=== PATIENT | male | born 1960 | race Caucasian/White ===

== ENCOUNTER 2024-09-28 06:28 | Emergency (ER) | payer BC, SELFPAY ==
--- NOTE | ~2024-09-28 | CT_ITS ---
EXAMINATION: CT brain wo con DATE: 09/28/2024 08:18 INDICATION: Acute mental status TECHNIQUE: Computed tomography (CT) of the head was performed without intravenous contrast. Sagittal and coronal reconstructions were performed. The mA was adjusted according to patient size. Iterative reconstruction technique was employed. The dose-length product was 681.00 mGy-cm. COMPARISON: None FINDINGS: No acute intracranial hemorrhage, acute infarction or abnormal extra axial fluid collection. There is mild scattered white matter hypoattenuation consistent with chronic small vessel ischemic disease. V entricles are normal and symmetric. No mass/mass effect. Changes of bilateral intraocular lens replac ement. The orbits, paranasal sinuses and mastoid air cells are normal. IMPRESSION: 1. Normal aging brain. No acute intracranial process. Reviewed, dictated and finalized at location [facility]. P THERAPY COUNSELOR
[2024-09-28 06:30] VITALS: BP 120/92; PULSE 128; RESP 15; TEMP 36.7; O2SAT 94
[2024-09-28 06:46] VITALS: PULSE 125; RESP 15; O2SAT 100
--- NOTE | 2024-09-28 06:46 | ECG_ITS ---
Test Date: 2024-09-28 06:51:14 Measurements Intervals [place] Rate: 123 P: 167 WA: 220 QRS: 129 QRSD: 141 T: 14 QT: 381 QTc: 546 Interpretive Statements UNDETERMINED RHYTHM, CONSIDER JUNCTIONAL TACHYCARDIA RIGHT BUNDLE BRANCH BLOCK [120+ ms QRS DURATION, UPRIGHT V1, 40+ ms S IN I/aVL/V4/V5/V6] LEFT POSTERIOR FASCICULAR BLOCK [QRS AXIS > 109, INFERIOR Q] No previous ECG available for comparison Electronically Signed On 09-28-2024 17:19:27 SCALPING MACHINE OPERATOR by Rubens Mancini M.D.
[2024-09-28 06:56] LABS: Basophils Percent Auto 0.2 % (0.2-1.2); Eosinophils Percent Auto 0.1 % (0-4.4); Hematocrit 36.9 % (42.0-52.0); Hemoglobin 11.4 g/dL (14.0-18.0); Immature Granulocyte Absolute 0.12 K/mm3 (0.00-0.031); Immature Granulocyte Percent A 0.9 % (0-0.5); Lymphocytes Absolute Auto 0.65 K/mm3 (0.9-3.2); Lymphocytes Percent Auto 4.8 % (18.3-44.2); Mean Corpuscular HGB Conc 30.9 g/dl (32-36); Mean Corpuscular Hemoglobin 26.5 pg (26-34); Mean Corpuscular Volume 85.6 fl (80-100); Mean Platelet Volume 9.7 fl (7.4-10.4); Monocytes Absolute Auto 1.1 K/mm3 (0.1-0.6); Monocytes Percent Auto 7.8 % (2.6-8.5); Neutrophils Absolute Auto 11.7 K/mm3 (1.3-6.7); Neutrophils Percent Auto 86.2 % (45.5-73.1); Platelet Count Result 324 k/mm3 (150-375); Red Blood Count 4.31 M/mm3 (4.6-6.20); Red Cell Distribution Width 20.1 % (11.5-14.5); White Blood Count 13.5 K/mm3 (4.5-10.0)
[2024-09-28 07:00] VITALS: BP 123/75; PULSE 98; RESP 18; TEMP 36.6; O2SAT 99
[2024-09-28 07:03] LABS: Alanine Aminotransferase 17 U/L (6-50); Albumin Level 3.4 g/dL (3.5-5.1); Alkaline Phosphatase 170 U/L (38-126); Anion Gap 5 mmol/L (4-12); Aspartate Amino Transferase 28 U/L (17-59); Bilirubin,Total 1.7 mg/dL (0.2-1.3); Blood Urea Nitrogen 33 mg/dL (9-20); Calcium 9.9 mg/dL (8.4-10.2); Carbon Dioxide 26 mmol/L (22-30); Chloride 105 mmol/L (98-107); Estimated CRCL calculation 57 ml/min; Estimated Glomerular Filt Rate 56; Glucose 134 mg/dL (65-110); Potassium 5.1 mmol/L (3.4-5.0); Sodium 136 mmol/L (137-145)
[2024-09-28 07:11] LABS: Add Urine Microscopic? YES; Appearance Urine Clear (Clear); Bacteria Urine None Seen /hpf; Bilirubin Urine Negative (Negative); Blood Urine Negative (Negative); Color Urine Yellow (Yellow); Glucose Urine UA Negative (Negative); Ketones Urine Negative (Negative); Leukocyte Esterase Ur Negative LEU/UL (Negative); Nitrate Urine Negative (Negative); Non Pathogenic Casts 0-2; Protein Urine Trace mg/dL (Negative); RBC Urine 0-2 /hpf (0-2); Specific Grav Ur 1.014 (1.001-1.035); Squamous Epithelial Cell Urine None Seen /hpf (Few); WBC Urine 0-5 /hpf (0-3)
[2024-09-28 07:14] LABS: Lactic Acid Reflex 2.2 mmol/L (0.7-2.0)
[2024-09-28 07:20] LABS: INR 1.3; Prothrombin Time 16.1 Seconds (11.1-14.7)
[2024-09-28 07:21] LABS: Partial Thromboplastin Time 44.8 Seconds (22.3-36.8)
--- NOTE | 2024-09-28 08:22 | PC.NURSE ---
Pt neuro assessment unchanged. Pt alert to name, responds to verbal commands.
[2024-09-28 09:09] LABS: Influenza A QL RT-PCR Negative (Negative); Influenza B QL RT-PCR Negative (Negative); RSV RNA, RT-PCR Negative (Negative); SARS-CoV-2 RNA PCR Negative (Negative)
--- NOTE | 2024-09-28 09:37 | ED.GENADULT ---
HPI - General Adult General Chief complaint: Altered Mental Status Stated complaint: unresponsive, now aox1 Time Seen by Provider: 09/28/24 07:57 History of Present Illness HPI narrative: 64-year-old male presents emergency department for evaluation for unresponsive episode this morning. Staff states they were unable to wake him this morning and called EMS. EMS was able to wake the patient with a sternal rub. His vital signs were normal. Upon arrival emergency department patient denies any complaints. Reportedly into the patient woke up he was confused but upon arrival emergency department patient A&O x4 and is at his baseline Related Data Allergies Allergy/AdvReac Type Severity Reaction Status Date / Time No Known Drug Allergies AdvReac Other Verified 09/28/24 06:38 Review of Systems Review of Systems: All systems reviewed & are unremarkable except as noted in HPI and below Exam Narrative: APPEARANCE: Well appearing, no pain, no distress, well-nourished. HEAD: normocephalic, atraumatic. EYES: PERRLA/EOMI, conjunctivae clear. NOSE: Normal no drainage EARS:TMS clear with good light reflex. THROAT: Pharynx clear, no exudate. NECK: Supple. No adenopathy, no masses. RESPIRATORY: Airway patent, respirations nonlabored. Clear to auscultation bilaterally, no rales, rhonchi, wheezing. CARDIOVASCULAR: Regular rate and rhythm without murmurs rubs or gallops. ABDOMINAL: Soft, nontender, nondistended, normal bowel sounds MUSCULOSKELETAL: Moves all extremities. Strength/ROM intact, No edema, No calf tenderness. Right knee is well-appearing with a well-healing surgical incision no significant erythema or edema NEURO: Alert. Cranial nerves II through XII intact. Good gait. Good coordination SKIN: Warm, dry. Normal Color Course Vital Signs Vital signs: Vital Signs Temperature 98.0 F 09/28/24 06:30 Pulse Rate 128 H 09/28/24 06:30 Respiratory Rate 15 09/28/24 06:30 Blood Pressure 120/92 H 09/28/24 06:30 Pulse Oximetry 94 09/28/24 06:30 Oxygen Delivery Room Air 09/28/24 06:30 Temperature 98.0 F 09/28/24 11:32 Pulse Rate 89 09/28/24 11:32 Respiratory Rate 16 09/28/24 11:32 Blood Pressure 128/70 09/28/24 11:32 Pulse Oximetry 98 09/28/24 11:32 Oxygen Delivery Room Air 09/28/24 06:30 Medical Decision Making MDM Narrative Medical decision making narrative: 64-year-old male present to the emergency department for evaluation for altered mental status unresponsive episode this morning. Upon arrival emergency department patient is back to his normal baseline. Patient is afebrile but does have a leukocytosis of 13.5 with hemoglobin 11.4, INR is 1.3. Patient does have a mildly elevated potassium of 5.1 but patient was treated with a L of IV fluids. UA was negative for underlying infection, patient was negative for influenza RSV and for COVID and patient's head CT showed no acute intracranial abnormality. We did discuss the patient's current mental status with nursing staff at [facility] and they do states this is his baseline. Patient currently denies any pain or complaints. Patient is comfortable the plan for discharge back to his care facility. Low concern for seizure, TIA, CVA or underlying infectious etiology. Unsure of what caused the morning somnolence. Differential Diagnosis Differential Diagnosis: COVID, RSV, influenza Vital Signs Vital Signs: Vital Signs Temperature 98.0 F 09/28/24 06:30 Pulse Rate 128 H 09/28/24 06:30 Respiratory Rate 15 09/28/24 06:30 Blood Pressure 120/92 H 09/28/24 06:30 Pulse Oximetry 94 09/28/24 06:30 Oxygen Delivery Room Air 09/28/24 06:30 Temperature 98.0 F 09/28/24 11:32 Pulse Rate 89 09/28/24 11:32 Respiratory Rate 16 09/28/24 11:32 Blood Pressure 128/70 09/28/24 11:32 Pulse Oximetry 98 09/28/24 11:32 Oxygen Delivery Room Air 09/28/24 06:30 Lab Data Lab results reviewed: Yes I reviewed the patient's lab results. 09/28/24 06:47 09/28/24 06:47 Labs: Lab Results 09/28/24 09/28/24 09/28/24 Range/Units 06:47 06:56 06:57 WBC 13.5 H (4.5-10.0) K/mm3 RBC 4.31 L (4.6-6.20) M/mm3 Hgb 11.4 L (14.0-18.0) g/dL Hct 36.9 L (42.0-52.0) % MCV 85.6 (80-100) fl MCH 26.5 (26-34) pg MCHC 30.9 L (32-36) g/dl RDW 20.1 H (11.5-14.5) % Plt Count 324 (150-375) k/mm3 MPV 9.7 (7.4-10.4) fl Immature Gran % (Auto) 0.9 H (0-0.5) % Neut % (Auto) 86.2 H (45.5-73.1) % Lymph % (Auto) 4.8 L (18.3-44.2) % [place] % (Auto) 7.8 (2.6-8.5) % Eos % (Auto) 0.1 (0-4.4) % Baso % (Auto) 0.2 (0.2-1.2) % Lymph # (Auto) 0.65 L (0.9-3.2) K/mm3 [place] # (Auto) 1.1 H (0.1-0.6) K/mm3 Eos # (Auto) 0.0 (0-0.3) K/mm3 Baso # (Auto) 0.0 (0.0-0.1) K/mm3 Abs Immat Gran (auto) 0.12 H (0.00-0.031) K/mm3 Absolute Neuts (auto) 11.7 H (1.3-6.7) K/mm3 Absolute Nucleated RBC 0.000 (0.0-0.012) K/mm3 Nucleated RBC % 0.0 (0.0-0.2) % PT (11.1-14.7) Seconds INR APTT (22.3-36.8) Seconds Sodium 136 L (137-145) mmol/L Potassium 5.1 H (3.4-5.0) mmol/L Chloride 105 (98-107) mmol/L Carbon Dioxide 26 (22-30) mmol/L Anion Gap 5 (4-12) mmol/L BUN 33 H (9-20) mg/dL Creatinine 1.30 (0.7-1.3) mg/dL Estim Creat Clear Calc 57 ml/min Estimated GFR 56 L (59 - ) Glucose 134 H (65-110) mg/dL Lactic Acid 2.2 H (0.7-2.0) mmol/L Calcium 9.9 (8.4-10.2) mg/dL Total Bilirubin 1.7 H (0.2-1.3) mg/dL AST 28 (17-59) U/L ALT 17 (6-50) U/L Alkaline Phosphatase 170 H (38-126) U/L Total Protein 7.0 (6.3-8.2) g/dL Albumin 3.4 L (3.5-5.1) g/dL Urine Color Yellow (Yellow) Urine Appearance Clear (Clear) Urine pH 6.0 (5.0-9.0) Ur Specific [place] 1.014 (1.001-1.035) Urine Protein Trace (Negative) mg/dL Urine Glucose (UA) Negative (Negative) mg/dL Urine Ketones Negative (Negative) mg/dL Ur Blood (Man) Negative (Negative) Urine Nitrate Negative (Negative) Urine Bilirubin Negative (Negative) Urine Urobilinogen 1.0 (<2.0) mg/dL Leukocyte Esterase Rfl Negative (Negative) MEDINA/UL Urine RBC 0-2 (0-2) /hpf Urine WBC 0-5 (0-3) /hpf Ur Squamous Epith Cells None seen (Few) /hpf Urine Bacteria None seen /hpf Urine Casts 0-2 Influenza A (RT-PCR) (Negative) Influenza B (RT-PCR) (Negative) RSV (RT-PCR) (Negative) SARS-CoV-2 RNA (RT-PCR) (Negative) 09/28/24 09/28/24 Range/Units 07:02 08:27 WBC (4.5-10.0) K/mm3 RBC (4.6-6.20) M/mm3 Hgb (14.0-18.0) g/dL Hct (42.0-52.0) % MCV (80-100) fl MCH (26-34) pg MCHC (32-36) g/dl RDW (11.5-14.5) % Plt Count (150-375) k/mm3 MPV (7.4-10.4) fl Immature Gran % (Auto) (0-0.5) % Neut % (Auto) (45.5-73.1) % Lymph % (Auto) (18.3-44.2) % [place] % (Auto) (2.6-8.5) % Eos % (Auto) (0-4.4) % Baso % (Auto) (0.2-1.2) % Lymph # (Auto) (0.9-3.2) K/mm3 [place] # (Auto) (0.1-0.6) K/mm3 Eos # (Auto) (0-0.3) K/mm3 Baso # (Auto) (0.0-0.1) K/mm3 Abs Immat Gran (auto) (0.00-0.031) K/mm3 Absolute Neuts (auto) (1.3-6.7) K/mm3 Absolute Nucleated RBC (0.0-0.012) K/mm3 Nucleated RBC % (0.0-0.2) % PT 16.1 H (11.1-14.7) Seconds INR 1.3 APTT 44.8 H (22.3-36.8) Seconds Sodium (137-145) mmol/L Potassium (3.4-5.0) mmol/L Chloride (98-107) mmol/L Carbon Dioxide (22-30) mmol/L Anion Gap (4-12) mmol/L BUN (9-20) mg/dL Creatinine (0.7-1.3) mg/dL Estim Creat Clear Calc ml/min Estimated GFR (59 - ) Glucose (65-110) mg/dL Lactic Acid (0.7-2.0) mmol/L Calcium (8.4-10.2) mg/dL Total Bilirubin (0.2-1.3) mg/dL AST (17-59) U/L ALT (6-50) U/L Alkaline Phosphatase (38-126) U/L Total Protein (6.3-8.2) g/dL Albumin (3.5-5.1) g/dL Urine Color (Yellow) Urine Appearance (Clear) Urine pH (5.0-9.0) Ur Specific [place] (1.001-1.035) Urine Protein (Negative) mg/dL Urine Glucose (UA) (Negative) mg/dL Urine Ketones (Negative) mg/dL Ur Blood (Man) (Negative) Urine Nitrate (Negative) Urine Bilirubin (Negative) Urine Urobilinogen (<2.0) mg/dL Leukocyte Esterase Rfl (Negative) MEDINA/UL Urine RBC (0-2) /hpf Urine WBC (0-3) /hpf Ur Squamous Epith Cells (Few) /hpf Urine Bacteria /hpf Urine Casts Influenza A (RT-PCR) Negative (Negative) Influenza B (RT-PCR) Negative (Negative) RSV (RT-PCR) Negative (Negative) SARS-CoV-2 RNA (RT-PCR) Negative (Negative) Imaging Data Radiologist's impression: Impressions Head CT 09/28/24 08:20 IMPRESSION: 1. Normal aging brain. No acute intracranial process. Discharge Plan Discharge Clinical Impression: Altered mental status Patient Disposition: Home, Self-Care Condition: Stable Instructions: Antibiotic Form, General Patient Instructions Additional Instructions: Patient had a negative workup including a negative head CT, negative UA and patient was negative for influenza RSV and for COVID. Patient is back at his normal baseline. Patient preferred to be transferred back to the care facility. Patient should have close follow-up with primary care physician. Patient Language: B[place] Follow-up/Referrals: Kathleen,MD Rey [Primary Care Provider] -
--- NOTE | 2024-09-28 09:38 | PC.NURSE ---
RN called [facility] spoke with Misty NOGUEIRA who states pt normal mentation is A/Ox2-3. Pt slow speech is normal. Dr. Suazo informed
[2024-09-28 10:00] VITALS: BP 120/70; PULSE 92; RESP 16; O2SAT 98
[2024-09-28 10:06] LABS: Reflex Lactic Acid Yes or No Add Lactic
[2024-09-28 11:32] VITALS: BP 128/70; PULSE 89; RESP 16; TEMP 36.7; O2SAT 98
== END 2024-09-28 11:34 ==
PROVIDERS: Emergency Medicine; Emergency Provider Emergency Medicine; PCP Internal Medicine
DX: R41.82 Altered mental status, unspecified (principal); Z20.822 Contact with and (suspected) exposure to COVID-19
CPT/HCPCS: 36415; 70450; 80053; 81001; 83605; 85025; 85610; 85730; 87637; 93005; 99284